=== PATIENT | male | born 1985 | race African-American/Black ===

== ENCOUNTER 2017-11-16 13:49 | Emergency (ER) | payer OTHER ==
[~2017-11-16] VITALS: Ht 195.6 cm; Wt 135.2 kg
== END 2017-11-16 14:24 | disposition home or self-care (01) ==
LOC: ER 13:49
DX: J20.9 Acute bronchitis, unspecified (principal)
CPT/HCPCS: 99283

== ENCOUNTER 2018-03-02 12:16 | Emergency (ER) | payer OTHER ==
[~2018-03-02] VITALS: Ht 195.6 cm; Wt 135.2 kg
[2018-03-02] MEDS ORDERED: ONDANSETRON HCL INJ 2 MG/ML VIAL IV STA (12:58)
[2018-03-02] MEDS ORDERED: KETOROLAC TROMETHAMINE 30 MG/ML VIAL IV STA (12:58)
[2018-03-02] MEDS ORDERED: DONNATAL/LIDOCAINE/MAALOX 30 ML SUSP PO ONE (13:15)
== END 2018-03-02 14:56 | disposition left against medical advice (07) ==
LOC: ER 12:16
DX: K21.9 Gastro-esophageal reflux disease without esophagitis (principal); F31.9 Bipolar disorder, unspecified

== ENCOUNTER 2018-08-21 07:30 | Emergency (ER) | payer OTHER ==
[~2018-08-21] VITALS: Ht 195.6 cm; Wt 135.2 kg
--- OUTSIDE RECORDS SUMMARY | 2018-08-21 07:33 | XMS REPORT | Clinical Summary ---
Author Author [facility] Organization [facility] Address Unknown Phone Unavailable Care Team Providers Care Supervisor Sheet Manufacturing Name Role Phone Grace Mckay MD PCP Allergies No Known Allergies Medications End Date Status Medication Sig Dispensed Refills Start Date Active busPIRone (BUSPAR) 5 mg Take 1 tablet 90 tablet 1 tabletIndications: by mouth 3 7 Schizoaffective disorder, times daily. depressive type Active hydrocortisone 2.5 % APPLY TO FOOT 20 g 1 topical creamIndications: AND THIGH 7 Rash AREA TWO TIMES A DAY Active traZODone (DESYREL) 50 mg Take one to 60 tablet 0 tabletIndications: two tabs by 8 Schizoaffective disorder, mouth at depressive type bedtime as needed for sleep. Active ibuprofen (MOTRIN) 600 mg Take 1 tablet 30 tablet 0 tabletIndications: Pain by mouth 8 of right heel every 8 hours as needed for Pain. Active ziprasidone (GEODON) 60 Take 60 mg by 0 mg capsule mouth 2 times daily (with meals). Active buPROPion (WELLBUTRIN SR) Take 100 mg 0 100 mg sustained release by mouth 2 tablet times daily. Active citalopram (CELEXA) 20 mg Take 20 mg by 0 tablet mouth daily. Active captopril (CAPOTEN) 25 mg Take 25 mg by 0 tablet mouth daily. Active QUEtiapine (SEROQUEL) 100 Take 100 mg 0 mg tablet by mouth 2 times daily. Active ARIPiprazole (ABILIFY) 30 Take 30 mg by 0 mg tablet mouth daily. 10/17/2017 Discontinued naproxen (NAPROSYN) 500 Take 1 tablet 60 tablet 3 mg tabletIndications: by mouth 2 7 Osteoarthritis of knee, times daily unspecified laterality, (with meals). unspecified osteoarthritis type, Tendonitis 10/17/2017 Discontinued traZODone (DESYREL) 50 mg Take one to 60 tablet 1 tabletIndications: two tabs by 7 Schizoaffective disorder, mouth at depressive type bedtime as needed for sleep. 10/17/2017 Discontinued ARIPiprazole (ABILIFY) 10 Take one half 30 tablet 1 mg tabletIndications: tab by mouth 7 Schizoaffective disorder, daily for one depressive type week, then increase to full tab once daily thereafter. 10/17/2017 Discontinued traZODone (DESYREL) 50 mg Take one to 60 tablet 0 tabletIndications: two tabs by 8 Schizoaffective disorder, mouth at depressive type bedtime as needed for sleep. 10/17/2017 Discontinued ARIPiprazole (ABILIFY) 10 Take 1 tablet 30 tablet 0 mg tabletIndications: by mouth 8 Schizoaffective disorder, daily Take depressive type one half tab by mouth daily for one week, then increase to full tab once daily thereafter. 10/17/2017 Discontinued ibuprofen (MOTRIN) 600 mg Take 1 tablet 30 tablet 0 tabletIndications: Pain by mouth 8 of right heel every 8 hours as needed for Pain. 08/10/2018 Discontinued ARIPiprazole (ABILIFY) 10 Take 1 tablet 30 tablet 0 mg tabletIndications: by mouth 8 Schizoaffective disorder, daily Take depressive type one half tab by mouth daily for one week, then increase to full tab once daily thereafter. Active Problems Problem Noted Date Bilateral chronic knee pain 10/22/2016 Impaired gait and mobility 10/22/2016 History of bipolar disorder 10/14/2016 Non morbid obesity due to excess calories 10/14/2016 Smoker 10/14/2016 Osteoarthritis of knee 10/14/2016 Overview: tdap 2009 outside Encounters Care Team Description Date Type Specialty Grace Mckay MD Annual physical exam (Primary Dx); Mood disorder; Non-compliance; Non morbid obesity due to excess calories 08/10/2018 Office Visit Family Practice 08/10/2018 Travel Grace Mckay MD Appointment Related Questions (appointment reminder ) 08/10/2018 Telephone Family Practice Grace Mckay MD Pain of right heel (Primary Dx); Schizoaffective disorder, depressive type; Annual physical exam 10/17/2017 Office Visit Family Practice after 08/20/2017 Family History Medical History Relation Name Comments Arthritis Father Hypertension Father Arthritis Maternal Grandfather Hypertension Maternal Grandfather Arthritis Maternal Grandmother Hypertension Maternal Grandmother Arthritis Mother Hypertension Mother Arthritis Paternal Grandfather Hypertension Paternal Grandfather Arthritis Paternal Grandmother Hypertension Paternal Grandmother Relation Name Status Comments Father Maternal Grandfather Maternal Grandmother Mother Paternal Grandfather Paternal Grandmother Social History Date Tobacco Use Types Packs/Day Years Used Current Every Day Smoker Cigarettes 3 3 Smokeless Tobacco: Never Used Tobacco Cessation: Ready to Quit: Yes; Counseling Given: Yes Alcohol Use Drinks/Week oz/Week Comments Yes 0 Standard 0.0 drinks or equivalent Sex Assigned at Date Recorded Not on file Industry Job Start Date Occupation Not on file Not on file Not on file Travel End Travel History Travel Start No recent travel history available. Last Filed Vital Signs Time Taken Vital Sign Reading 08/10/2018 2:23 PM CDT Blood Pressure 130/90 08/10/2018 2:23 PM CDT Pulse 102 08/10/2018 2:23 PM CDT Temperature 36.7 C (98 F) 08/10/2018 2:23 PM CDT Respiratory Rate 16 - Oxygen Saturation - - Inhaled Oxygen - Concentration 08/10/2018 2:23 PM CDT Weight 140 kg (308 lb 9.6 oz) 08/10/2018 2:23 PM CDT Height 193 cm (6' 4") 08/10/2018 2:23 PM CDT Body Mass Index 37.56 Plan of Treatment Health Maintenance Due Date Last Done Comments IMM Influenza Seasonal 03/02/2018Mar to July (>/=19 yrs) Results Not on fileafter 08/20/2017 Insurance Type Payer Benefit Subscriber ID Effective Phone Address Plan / Dates Group [facility] xxxxxxxxx 2017-P [phone] [id number] [place] [address]
--- OUTSIDE RECORDS SUMMARY | 2018-08-21 07:33 | XMS REPORT | Continuity of Care Document ---
Author Author [facility] Interface Address Unknown Phone Unavailable Problems Problem Status Onset Date Classification Date Reported Comments Source lumbago /low back pain Active Diagnosis 05/02/2014 [facility] Depression/Anxiety,Dysthymic disorder Active Problem 10/10/2015 [facility] acne Active Diagnosis 05/02/2014 [facility] Conjunctivitis Active Diagnosis 05/02/2014 [facility] Back pain Active Problem 10/10/2015 [facility] Body Mass Index 37.0-37.9, adult Active Problem 10/10/2015 [facility] Anxiety state, unspecified Active Problem 10/10/2015 [facility] tobacco disorder Active Problem 10/10/2015 [facility] Body Mass Index 35.0-35.9, adult Active Problem 05/02/2014 [facility] Other specified drug dependence, continuous abuse Active Problem 10/10/2015 [facility] BMI 35.0-35.9,adult Active Problem 10/10/2015 [facility] Overweight Active Problem 10/10/2015 [facility] Plantar wart Active Problem 10/10/2015 [facility] Nephropathy Active Problem 10/10/2015 [facility] Hypertension Active Problem 10/10/2015 [facility] thrombocytopenia Active Problem 10/10/2015 [facility] Depression Active Diagnosis 10/10/2015 [facility] Back pain Active Diagnosis 10/10/2015 [facility] Weight gain Active Diagnosis 10/10/2015 [facility] Tobacco dependence Active Diagnosis 10/10/2015 [facility] Glucose intolerance Active Diagnosis 10/10/2015 [facility] Insect bite Active Diagnosis 10/10/2015 [facility] Essential hypertension Active Diagnosis 10/10/2015 [facility] Hypertensive chronic kidney disease w stg 1-4/unsp chr kdny Active Problem 10/10/2015 [facility] Body mass index 35.0-35.9, adult Active Problem 10/10/2015 [facility] BMI 36.0-36.9,adult Active Problem 10/10/2015 [facility] Obese Active Problem 10/10/2015 [facility] Polycythemia Active Problem 10/10/2015 [facility] Thrombocytopenia Active Problem 10/10/2015 [facility] Schizoaffective disorder Active Problem 10/10/2015 [facility] Radiculopathy of lumbar region Active Problem 10/10/2015 [facility] Body mass index of 34.0-34.9 in adult Active Problem 10/10/2015 [facility] Other issue of medical certificates Active Diagnosis 08/05/2015 [facility] Obesity Active Diagnosis 08/05/2015 [facility] Body mass index 36.0-36.9, adult Active Problem 08/05/2015 [facility] Nonsuppurative otitis media Active Diagnosis 07/20/2015 [facility] Arthritis of right knee Active Diagnosis 07/20/2015 [facility] Foot injury Active Diagnosis 07/20/2015 [facility] Medications Medication Details Route Status Patient Instructions Ordering Provider Order Date Source Mobic 1 tablet Orally Active 7.5 MG Orally Once a day [facility] 10/03/2015 [facility] Benadryl as directed Externally Active 1-0.1 % Externally [facility] 10/03/2015 [facility] Cymbalta 1 capsule Orally No Longer Active 30 MG Orally Once a day [facility] 08/01/2015 [facility] Wellbutrin 1 tablet Orally Active 75 MG Orally Twice a day [facility] 07/14/2015 [facility] Flonase Allergy Relief 1 spray in each nostril Nasally Active 50 MCG/ACT Nasally Once a day [facility] 07/14/2015 [facility] SAGAR Sports as directed NA Active [facility] 07/14/2015 [facility] Lisinopril 1 tablet Orally Active 5 MG Orally Once a day [facility] 07/14/2015 [facility] Loratadine 1 tablet Orally Active 10 MG Orally Once a day [facility] 07/14/2015 [facility] Tramadol-Acetaminophen 1 tablets as needed Orally Active 37.5- 325 MG Orally once a day [facility] 07/14/2015 [facility] Lidoderm 1 patch to skin remove after 12 hours Externally Active 5 % Externally Once a day [facility] 03/02/2015 [facility] Lexapro 1 tablet Orally No Longer Active 10 MG Orally Once a day [facility] 11/28/2014 [facility] Medrol (Leo) as directed Orally Active 4 MG Orally [facility] 03/01/2014 [facility] Diclofenac Sodium 1 tablet Orally Active 75 MG Orally Once a day [facility] 03/01/2014 [facility] Gentamicin Sulfate 1 application Ophthalmic Active 0.3 % Ophthalmic Twice a day [facility] 02/15/2014 [facility] Erythromycin 1 application to affected area Externally Active 2 % Externally Twice a day [facility] 01/26/2014 [facility] Tramadol-Acetaminophen 2 tablets as needed Orally Active 37.5- 325 MG Orally every 6 hrs [facility] 01/26/2014 [facility] Prozac 1 capsule in the morning Orally No Longer Active 10 MG Orally Once a day [facility] 01/26/2014 [facility] Allergies, Adverse Reactions, Alerts Substance Category Reaction Severity Reaction type Status Date Reported Comments Source N.K.D.A. Adverse Reaction Info Not Available Adverse Reaction Active 10/03/2015 [facility] Immunizations Immunization Date Given Site Status Last Updated Comments Source Results Order Name Results Value Reference Range Date Interpretation Comments Source Vital Signs Vital Sign Value Date Comments Source Weight 284 10/03/2015 [facility] Height 74 10/03/2015 [facility] Diastolic (mm Hg) 84 10/03/2015 [facility] Systolic (mm Hg) 128 10/03/2015 [facility] Weight 278 08/01/2015 [facility] Height 74 08/01/2015 [facility] Diastolic (mm Hg) 86 08/01/2015 [facility] Systolic (mm Hg) 128 08/01/2015 [facility] Weight 283 07/14/2015 [facility] Height 74 07/14/2015 [facility] Diastolic (mm Hg) 96 07/14/2015 [facility] Systolic (mm Hg) 150 07/14/2015 [facility] Weight 278 11/28/2014 [facility] Height 74 11/28/2014 [facility] Diastolic (mm Hg) 86 11/28/2014 [facility] Systolic (mm Hg) 130 11/28/2014 [facility] Weight 294 06/13/2014 [facility] Height 74 06/13/2014 [facility] Diastolic (mm Hg) 82 06/13/2014 [facility] Systolic (mm Hg) 118 06/13/2014 [facility] Weight 276 03/01/2014 [facility] Height 74 03/01/2014 [facility] Diastolic (mm Hg) 76 03/01/2014 [facility] Systolic (mm Hg) 138 03/01/2014 [facility] Weight 292 02/15/2014 [facility] Height 74 02/15/2014 [facility] Diastolic (mm Hg) 74 02/15/2014 [facility] Systolic (mm Hg) 142 02/15/2014 [facility] Diastolic (mm Hg) 86 01/26/2014 [facility] Systolic (mm Hg) 130 01/26/2014 [facility] Weight 293 01/26/2014 [facility] Encounters Location Location Details Encounter Type Encounter Number Reason For Visit Attending Provider ADM Date DC Date Status Source [facility] BACK SPASMS [id number] 01/26/2014 01/26/2014 [facility] BACK SPASMS [id number] 01/26/2014 01/26/2014 [facility] BACK SPASMS [id number] 01/26/2014 01/26/2014 [facility] BACK SPASMS [id number] 01/26/2014 01/26/2014 [facility] BACK SPASMS [id number] 01/26/2014 01/26/2014 [facility] BACK SPASMS [id number] 01/26/2014 01/26/2014 [facility] BACK SPASMS [id number] 01/26/2014 01/26/2014 [facility] BACK SPASMS [id number] 01/26/2014 01/26/2014 [facility] BACK SPASMS [id number] 01/26/2014 01/26/2014 [facility] BACK SPASMS [id number] 01/26/2014 01/26/2014 [facility] BACK SPASMS [id number] 01/26/2014 01/26/2014 [facility] Unknown [id number] 02/04/2014 02/04/2014 [facility] Unknown [id number] 02/04/2014 02/04/2014 [facility] Unknown [id number] 02/04/2014 02/04/2014 [facility] Unknown [id number] 02/04/2014 02/04/2014 [facility] Unknown [id number] 02/04/2014 02/04/2014 [facility] Unknown [id number] 02/04/2014 02/04/2014 [facility] Unknown [id number] 02/04/2014 02/04/2014 [facility] Unknown [id number] 02/04/2014 02/04/2014 [facility] Unknown [id number] 02/04/2014 02/04/2014 [facility] Unknown [id number] 02/04/2014 02/04/2014 [facility] Unknown [id number] 02/04/2014 02/04/2014 [facility] pink eye [id number] 02/15/2014 02/15/2014 [facility] pink eye [id number] 02/15/2014 02/15/2014 [facility] pink eye [id number] 02/15/2014 02/15/2014 [facility] pink eye [id number] 02/15/2014 02/15/2014 [facility] pink eye [id number] 02/15/2014 02/15/2014 [facility] pink eye [id number] 02/15/2014 02/15/2014 [facility] pink eye [id number] 02/15/2014 02/15/2014 [facility] pink eye [id number] 02/15/2014 02/15/2014 [facility] pink eye [id number] 02/15/2014 02/15/2014 [facility] pink eye [id number] 02/15/2014 02/15/2014 [facility] 2 weeks follow up [id number] 03/01/2014 03/01/2014 [facility] 2 weeks follow up [id number] 03/01/2014 03/01/2014 [facility] 2 weeks follow up [id number] 03/01/2014 03/01/2014 [facility] 2 weeks follow up [id number] 03/01/2014 03/01/2014 [facility] 2 weeks follow up [id number] 03/01/2014 03/01/2014 [facility] 2 weeks follow up [id number] 03/01/2014 03/01/2014 [facility] 2 weeks follow up [id number] 03/01/2014 03/01/2014 [facility] 2 weeks follow up [id number] 03/01/2014 03/01/2014 [facility] 2 weeks follow up [id number] 03/01/2014 03/01/2014 [facility] 2 weeks follow up [id number] 03/01/2014 03/01/2014 [facility] Unknown [id number] 03/03/2014 03/03/2014 [facility] Unknown [id number] 03/03/2014 03/03/2014 [facility] Unknown [id number] 03/03/2014 03/03/2014 [facility] Unknown [id number] 03/03/2014 03/03/2014 [facility] Unknown [id number] 03/03/2014 03/03/2014 [facility] Unknown [id number] 03/03/2014 03/03/2014 [facility] Unknown [id number] 03/03/2014 03/03/2014 [facility] Unknown [id number] 03/03/2014 03/03/2014 [facility] Unknown [id number] 03/03/2014 03/03/2014 [facility] Unknown [id number] 03/03/2014 03/03/2014 [facility] back pain [id number] 05/19/2014 05/19/2014 [facility] back pain [id number] 05/19/2014 05/19/2014 [facility] back pain [id number] 05/19/2014 05/19/2014 [facility] back pain [id number] 05/19/2014 05/19/2014 [facility] Practice back pain [id number] 05/19/2014 05/19/2014 [facility] back pain [id number] 05/19/2014 05/19/2014 [facility] Unknown [id number] 06/10/2014 06/10/2014 [facility] Unknown [id number] 06/10/2014 06/10/2014 [facility] Practice Unknown [id number] 06/10/2014 06/10/2014 [facility] Unknown [id number] 06/10/2014 06/10/2014 [facility] Unknown [id number] 06/10/2014 06/10/2014 [facility] Unknown [id number] 06/10/2014 06/10/2014 [facility] Practice refills on tramadol and flexeril [id number] 06/13/2014 06/13/2014 [facility] Practice refills on tramadol and flexeril [id number] 06/13/2014 06/13/2014 [facility] Practice refills on tramadol and flexeril [id number] 06/13/2014 06/13/2014 [facility] Practice refills on tramadol and flexeril [id number] 06/13/2014 06/13/2014 [facility] refills on tramadol and flexeril [id number] 06/13/2014 06/13/2014 [facility] WART ON FINGER--PAINFUL [id number] 11/28/2014 11/28/2014 [facility] WART ON FINGER--PAINFUL [id number] 11/28/2014 11/28/2014 [facility] WART ON FINGER--PAINFUL [id number] 11/28/2014 11/28/2014 [facility] WART ON FINGER--PAINFUL [id number] 11/28/2014 11/28/2014 [facility] ER FOLLOW UP [id number] 03/02/2015 03/02/2015 [facility] ER FOLLOW UP [id number] 03/02/2015 03/02/2015 [facility] ER FOLLOW UP [id number] 03/02/2015 03/02/2015 [facility] KNEE PAIN [id number] 07/14/2015 07/14/2015 [facility] KNEE PAIN [id number] 07/14/2015 07/14/2015 [facility] KNEE PAIN [id number] 07/14/2015 07/14/2015 [facility] sick [id number] 08/01/2015 08/01/2015 [facility] sick [id number] 08/01/2015 08/01/2015 [facility] INSECT BITE [id number] 10/03/2015 10/03/2015 [facility] Departed Emergency Room [id number] LISA ELENA MD 11/16/2017 11/16/2017 [facility] Departed Emergency Room [id number] RHETT MARADIAGA MD 03/02/2018 03/02/2018 [facility] Procedures Procedure Code Date Perfomer Comments Source
--- OUTSIDE RECORDS SUMMARY | 2018-08-21 07:33 | XMS REPORT | Clinical Summary ---
Author Author [facility] Address Unknown Phone Unavailable Care Team Providers Care Clay Temperer Name Role Phone Asked, No Pcp PCP Unavailable Allergies Comments Active Allergy Reactions Severity Noted Date Fish Oil 12/18/2017 Medications End Date Status Medication Sig Dispensed Refills Start Date Active ziprasidone (GEODON) 60 Take 60 mg by 0 MG capsule mouth daily. Active LORAZepam (ATIVAN) 2 MG Take 2 mg by 0 tablet mouth 3 (three) times a day. Active buPROPion (WELLBUTRIN) Take 100 mg 0 100 MG tablet by mouth 2 (two) times a day. Active citalopram (CeleXA) 20 MG Take 20 mg by 0 tablet mouth 2 (two) times a day. Active captopril (CAPOTEN) 25 MG Take 25 mg by 0 tablet mouth daily. Active lisinopril Take 1 tablet 30 tablet 0 03/20/201 (PRINIVIL,ZESTRIL) 10 mg (10 mg total) 8 tablet by mouth daily for 30 days. 09/18/2017 ARIPiprazole (ABILIFY) 5 Take 1 tablet 30 tablet 0 03/20/201 MG tablet (5 mg total) 8 by mouth daily for 30 days. 09/18/2017 indomethacin (INDOCIN) 25 Take 1 30 capsule 0 03/20/201 MG capsule capsule (25 8 mg total) by mouth 3 (three) times a day as needed for mild pain for up to 30 days. Active Problems Not on file Encounters Care Team Description Date Type Specialty Sara Jimenez MD 12/18/2017 Emergency Emergency Medicine after 08/20/2017 Social History Date Tobacco Use Types Packs/Day Years Used Current Every Day Smoker Cigarettes Smokeless Tobacco: Never Used Alcohol Use Drinks/Week oz/Week Comments Yes ocass Sex Assigned at Date Recorded Not on file Industry Job Start Date Occupation Not on file Not on file Not on file Travel End Travel History Travel Start No recent travel history available. Last Filed Vital Signs Time Taken Vital Sign Reading 12/18/2017 4:57 PM CDT Blood Pressure 159/95 12/18/2017 4:57 PM CDT Pulse 78 12/18/2017 4:57 PM CDT Temperature 37.1 C (98.7 F) 12/18/2017 4:57 PM CDT Respiratory Rate 18 12/18/2017 4:57 PM CDT Oxygen Saturation 99% - Inhaled Oxygen - Concentration 12/18/2017 4:57 PM CDT Weight 132 kg (290 lb) 12/18/2017 4:57 PM CDT Height 190.5 cm (6' 3") 12/18/2017 4:57 PM CDT Body Mass Index 36.25 Plan of Treatment Health Maintenance Due Date Last Done Comments INFLUENZA VACCINE 12/31/2017 Procedures Comments Procedure Name Priority Date/Time Associated Diagnosis ECG 12-LEAD STAT 12/18/2017 5:00 PM CDT after 08/20/2017 Results * ECG 12 lead (12/18/2017 5:00 PM CDT) Ventricular rate 92 [facility] Atrial rate 92 [facility] NV interval 176 [facility] QRSD interval 96 [facility] QT interval 344 [facility] QTC interval 425 [facility] P axis 1 48 [facility] QRS axis 1 54 [facility] T wave axis 20 [facility] EKG impression Normal sinus rhythm-Possible [facility] Left atrial enlargement-Nonspecific ST and T wave abnormality-Abnormal ECG-In automated comparison with ECG of 19-AUG-2017 11:51,-Nonspecific T wave abnormality now evident in Anterolateral leads- Performing Organization Address City/State/Zipcode Phone Number [facility] [address] [place] [address] after 08/20/2017 Insurance Payer Benefit Subscriber ID Type Phone Address Plan / Group [facility] MEDICAID [facility] xxxxxxxxx HMO [employer]+ [place] Advance Directives Patient has advance care planning documents on file. For more information, raegan neri contact: Mike Goldsmith [address] [place] [address]
--- OUTSIDE RECORDS SUMMARY | 2018-08-21 07:33 | XMS REPORT | Clinical Summary ---
Author Author [facility] Address Unknown Phone Unavailable Care Team Providers Care Belt Changer Name Role Phone Flor Felton PCP Allergies No Known Allergies Medications End Date Status Medication Sig Dispensed Refills Start Date Active benzocaine (HURRICAINE) Use as 9.4 g 0 20 % Gel directed 1 6 application in the mouth or throat 4 (four) times daily as needed (gum pain). Active Problems Not on file Social History Date Tobacco Use Types Packs/Day Years Used Current Some Day Smoker Smokeless Tobacco: Never Used Alcohol Use Drinks/Week oz/Week Comments Yes Sex Assigned at Date Recorded Not on file Industry Job Start Date Occupation Not on file Not on file Not on file Travel End Travel History Travel Start No recent travel history available. Last Filed Vital Signs Not on file Plan of Treatment Not on file Results Not on fileafter 08/20/2017 Insurance Payer Benefit Subscriber ID Type Phone Address Plan / Group MEDICAID - MEDICAID [facility] xxxxxxxxx Medicaid CARE COMM STAR Contracted PLAN
[2018-08-21] MEDS ORDERED: ONDANSETRON HCL 4 MG ORAL DISINTEGRATING TAB PO ONE (10:15)
[2018-08-21 12:31] VITALS: BP 157/98
--- NOTE | 2018-08-21 12:37 | NUR ---
PATIENT EDUCATED ON TAKING MEDICATIONS PRESCRIBED; PATIENT STATES HE HAS 25MG CAPTOPRIL PRESCRIPTION THAT HE WILL TAKE UPON DISCHARGE;
== END 2018-08-21 12:42 | disposition home or self-care (01) ==
LOC: ER 07:30
DX: R11.0 Nausea (principal); I10 Essential (primary) hypertension; F25.9 Schizoaffective disorder, unspecified
CPT/HCPCS: 99282; Q0162

== ENCOUNTER 2019-08-05 10:08 | Emergency (ER) | payer OTHER ==
[~2019-08-05] VITALS: Ht 190.5 cm; Wt 136.1 kg
[2019-08-05 11:06] VITALS: BP 152/113
[2019-08-05] MEDS ORDERED: LISINOPRIL 20 MG TAB PO ONE (11:15)
== END 2019-08-05 11:11 | disposition home or self-care (01) ==
LOC: ER 10:08
DX: Z76.0 Encounter for issue of repeat prescription (principal)
CPT/HCPCS: 99283

== ENCOUNTER 2024-07-20 09:11 | Emergency (ER) | payer OTHER ==
[~2024-07-20] VITALS: Ht 190.5 cm; Wt 121.1 kg
[2024-07-20] MEDS ORDERED: VENTOLIN HFA18 GM INH (09:52)
[2024-07-20] MEDS ORDERED: METOPROLOL TART50 MG PO ×2 (09:52→10:18)
[2024-07-20] MEDS ORDERED: ATIVAN0.5 MG PO (09:52)
[2024-07-20] MEDS ORDERED: ABILIFY30 MG (09:52)
[2024-07-20] MEDS ORDERED: FLUVOXAMINE MA100 M1 (09:52)
[2024-07-20] MEDS ORDERED: GEODON80 MG PO ×2 (09:52→10:21)
[2024-07-20] MEDS ORDERED: WELLBUTRIN SR100 MG PO ×2 (09:52→10:19)
[2024-07-20] MEDS ORDERED: ABILIFY20 MG PO (10:16)
[2024-07-20 10:43] VITALS: PULSE 82; RESP 18; TEMP 97.9; O2SAT 97
== END 2024-07-20 10:43 | disposition home or self-care (01) ==
LOC: FSED 09:39
DX: Z76.0 Encounter for issue of repeat prescription (principal); I10 Essential (primary) hypertension; J45.909 Unspecified asthma, uncomplicated; F41.9 Anxiety disorder, unspecified; F31.9 Bipolar disorder, unspecified
CPT/HCPCS: 81003; 99283